=== PATIENT | female | born 1990 | race Caucasian/White ===

== ENCOUNTER 2018-03-28 06:18 | Inpatient (IN) ==
[2018-03-28] MEDS ORDERED: ONDANSETRON 4 MG/2 ML VIAL IV PRN ×2 (07:35→16:30)
[2018-03-28] MEDS ORDERED: BUTORPHANOL 2 MG/ML VIAL IV PRN (07:35)
[2018-03-28] MEDS ORDERED: MEPERIDINE 50 MG/1 ML VIAL IV PRN (07:35)
[2018-03-28] MEDS ORDERED: BUTORPHANOL 1 MG/ML VIAL IV PRN (07:35)
[2018-03-28] MEDS ORDERED: OXYTOCIN/LR 20 UNIT/1,000 ML BAG IV SCH (08:00)
[2018-03-28] MEDS ORDERED: LACTATED RINGERS 1,000 ML IV SCH (08:00)
[2018-03-28 08:11] LABS: Basophils % 0.3 % (0.0-0.8); Eosinophils # 0.1 10*3/uL (0.0-0.87); Eosinophils % 1.1 % (0.00-10.9); Hematocrit 34.3 VOL% (35.7-47.0); Hemoglobin 11.3 GM/DL (12.0-16.0); Immature Granulocytes % 0.8 %; Lymphocytes # 1.9 10*3/uL (1.4-4.0); Lymphocytes % 15.1 % (21.3-54.2); Mean Corpuscular HGB Conc 32.9 GM/DL (32-36); Mean Corpuscular Hemoglobin 30 PG (27-34); Mean Corpuscular Volume 90.3 FL (87-102); Mean Platelet Volume 11.5 FL (9.6-12.0); Monocytes # 1.3 10*3/uL (0.11-0.8); Monocytes % 10.1 % (1.7-12.7); Neutrophils % 72.6 % (38.7-73.9); Platelet Count 327 T/CUMM (130-400); Red Cell Distribution Width 14.5 % (9.3-17.3); White Blood Count 12.4 T/CUMM (4-12)
[2018-03-28 08:20] LABS: INR 0.9; PT Patient Result 9.9 SECS; Partial Thromboplastin Time 27.8 SECS (0-40)
[2018-03-28 08:40] LABS: Alanine Aminotransferase 21 U/L (13-56); Albumin 2.5 G/DL (3.4-5.0); Alkaline Phosphatase 132 U/L (45-117); Aspartate Amino Transferase 16 U/L (0-37); Bilirubin,Total < 0.39 MG/DL (0.2-1.0); Blood Urea Nitrogen 8 MG/DL (7-18); Calcium 9.2 MG/DL (8.5-10.1); Glucose 95 MG/DL (74-106); Osmolality,Calculated 276.4 MOS/KG (273-304); Potassium 3.6 MMOL/L (3.5-5.1); Sodium 140 MMOL/L (136-145); Total Protein 6.4 G/DL (6.4-8.3)
[2018-03-28] MEDS ORDERED: PROMETHAZINE 25 MG/1 ML VIAL IM ONE (12:11)
[2018-03-28] MEDS ORDERED: ONDANSETRON 4 MG/2 ML VIAL IV ONE (12:11)
[2018-03-28] MEDS ORDERED: LACTATED RINGERS 1,000 ML IV ONE (12:11)
[2018-03-28] MEDS ORDERED: ePHEDrine 50 MG/ML AMP IV PRN (12:11)
[2018-03-28] MEDS ORDERED: diphenhydrAMINE 50 MG/1 ML VIAL IV PRN ×2 (12:11)
[2018-03-28] MEDS ORDERED: hydrOXYzine HCL 25 MG/1 ML VIAL IM PRN (12:11)
[2018-03-28] MEDS ORDERED: FAMOTIDINE 20 MG/2 ML VIAL IV ONE (12:11)
[2018-03-28] MEDS ORDERED: CITRIC ACID/SODIUM CITRATE 30 ML UDCUP PO ONE (12:11)
[2018-03-28] MEDS ORDERED: fentaNYL 2 MCG/ROPIV 0.2% EPID 150 ML EPIDURAL SCH (12:30)
[2018-03-28] MEDS ORDERED: fentaNYL 100 MCG/2 ML VIAL ONE (13:58)
[2018-03-28] MEDS ORDERED: LIDOCAINE 1% 50 ML VIAL ONE (13:58)
[2018-03-28] MEDS ORDERED: miSOPROStol 200 MCG TABLET ONE (13:58)
[2018-03-28] MEDS ORDERED: BISACODYL 10 MG SUPP RECTAL PRN (16:30)
[2018-03-28] MEDS ORDERED: LANOLIN 50% CREAM 0.3 OZ TUBE TOP PRN (16:30)
[2018-03-28] MEDS ORDERED: ACETAMINOPHEN 325 MG TABLET PO PRN (16:30)
[2018-03-28] MEDS ORDERED: OXYTOCIN/LR 20 UNIT/1,000 ML BAG IV ONE (16:30)
[2018-03-28] MEDS ORDERED: DIPH/TET/ACEL PERT BOOSTER VACCINE 0.5 ML VIAL IM ONE (16:30)
[2018-03-28] MEDS ORDERED: RHO(D) IMMUNE GLOBULIN 300 MCG SYRINGE IM ONE (16:30)
[2018-03-28] MEDS ORDERED: WITCH HAZEL PADS 100/JAR TOP PRN (16:30)
[2018-03-28] MEDS ORDERED: HYDROCORTISONE 2.5% RECTAL CREAM 30 GM TUBE TOP PRN (16:30)
[2018-03-28] MEDS ORDERED: BENZOCAINE 20%/MENTHOL 0.5% SPRAY 56 GM CAN TOP PRN (16:30)
[2018-03-28] MEDS ORDERED: oxyCODONE/ACETAMINOPHEN 5-325 MG TABLET PO PRN ×2 (16:30)
[2018-03-28] MEDS ORDERED: MEASLES/MUMPS/RUBELLA VACCINE 0.5 ML VIAL SUBCUT ONE (16:30)
[2018-03-28] MEDS: DOCUSATE SODIUM 100 MG CAPSULE PO SCH (20:40)
[2018-03-28] MEDS: IBUPROFEN 800 MG TABLET PO PRN (20:40)
[2018-03-29 04:13] LABS: Basophils # 0.1 10*3/uL (0.0-0.2); Basophils % 0.2 % (0.0-0.8); Eosinophils % 0.2 % (0.00-10.9); Hematocrit 28.2 VOL% (35.7-47.0); Hemoglobin 9.6 GM/DL (12.0-16.0); Immature Granulocytes % 0.5 %; Immature Granulocytes Absolute 0.11 #; Lymphocytes # 2.3 10*3/uL (1.4-4.0); Lymphocytes % 11.1 % (21.3-54.2); Mean Corpuscular Hemoglobin 30 PG (27-34); Mean Corpuscular Volume 87.9 FL (87-102); Mean Platelet Volume 12.2 FL (9.6-12.0); Monocytes # 1.7 10*3/uL (0.11-0.8); Neutrophils # 16.9 10*3/uL (1.4-7.4); Platelet Count 275 T/CUMM (130-400); Red Blood Count 3.21 MC/CUMM (3.8-5.5); Red Cell Distribution Width 14.6 % (9.3-17.3); White Blood Count 21.1 T/CUMM (4-12)
[2018-03-29 04:44] LABS: Band Neutrophils 4 % (0-10); Lymphocytes 12 % (20-55); Segmented Neutrophils 79 % (50-85); Total Cells Counted 100
[2018-03-29 04:45] LABS: Anisocytosis 1+; Platelet Estimate Normal
[2018-03-29] MEDS: DOCUSATE SODIUM 100 MG CAPSULE PO SCH ×2 (08:35→21:31)
[2018-03-29] MEDS ORDERED: FERROUS SULFATE 325 MG TABLET PO SCH (09:00)
[2018-03-29] MEDS ORDERED: MULTIVITAMIN (PRENATAL) TABLET PO SCH (09:00)
[2018-03-29] MEDS: IBUPROFEN 800 MG TABLET PO PRN (17:25)
[2018-03-30 07:15] VITALS: BP 113/70
== END 2018-03-30 13:40 | disposition home or self-care (01) | DRG 560 ==
LOC: N.LDOUT 06:18 → N.LD 06:20 → N.OB 17:24
PROVIDERS: ADMIT Obstetrics & Gynecology; ATTEND Obstetrics & Gynecology

== ENCOUNTER 2018-04-01 10:47 | Inpatient (IN) ==
[2018-04-01] MEDS ORDERED: FUROSEMIDE 100 MG/10 ML VIAL IV STA (11:35)
[2018-04-01] MEDS ORDERED: LABETALOL 20 MG/4 ML SYRINGE IV STA ×2 (11:35→15:00)
[2018-04-01] MEDS ORDERED: MAGNESIUM SULF RIDER 2 GM in PREMIX 1 EACH IV ONE (11:37)
[2018-04-01 11:41] LABS: Basophils # 0.1 10*3/uL (0.0-0.2); Basophils % 0.3 % (0.0-0.8); Eosinophils # 0.3 10*3/uL (0.0-0.87); Hematocrit 30.7 VOL% (35.7-47.0); Hemoglobin 10.2 GM/DL (12.0-16.0); Immature Granulocytes % 0.8 %; Immature Granulocytes Absolute 0.12 #; Lymphocytes # 2.3 10*3/uL (1.4-4.0); Lymphocytes % 14.7 % (21.3-54.2); Mean Corpuscular HGB Conc 33.2 GM/DL (32-36); Mean Corpuscular Hemoglobin 31 PG (27-34); Mean Corpuscular Volume 92.2 FL (87-102); Mean Platelet Volume 11.6 FL (9.6-12.0); Monocytes # 0.8 10*3/uL (0.11-0.8); Neutrophils # 12.1 10*3/uL (1.4-7.4); Neutrophils % 77.2 % (38.7-73.9); Platelet Count 406 T/CUMM (130-400); Red Blood Count 3.33 MC/CUMM (3.8-5.5); Red Cell Distribution Width 15.1 % (9.3-17.3); White Blood Count 15.6 T/CUMM (4-12)
[2018-04-01 11:54] LABS: Alanine Aminotransferase 41 U/L (13-56); Albumin 2.6 G/DL (3.4-5.0); Alkaline Phosphatase 131 U/L (45-117); Aspartate Amino Transferase 37 U/L (0-37); Blood Urea Nitrogen 9 MG/DL (7-18); Calcium 8.1 MG/DL (8.5-10.1); Glucose 77 MG/DL (74-106); Potassium 3.6 MMOL/L (3.5-5.1); Sodium 143 MMOL/L (136-145); Troponin I Only < 0.015 NG/ML (0.00-0.045)
[2018-04-01] MEDS ORDERED: LABETALOL 100 MG/20 ML VIAL IV ONE (11:55)
[2018-04-01] MEDS ORDERED: ACETAMINOPHEN 325 MG TABLET PO PRN (15:07)
[2018-04-01] MEDS ORDERED: ONDANSETRON 4 MG/2 ML VIAL IV PRN (15:07)
[2018-04-01] MEDS ORDERED: BISACODYL 10 MG SUPP RECTAL PRN (15:07)
[2018-04-01] MEDS ORDERED: IBUPROFEN 800 MG TABLET PO PRN (15:07)
[2018-04-01] MEDS ORDERED: MAGNESIUM HYDROXIDE SUSP 30 ML UDCUP PO PRN (15:07)
[2018-04-01] MEDS ORDERED: oxyCODONE/ACETAMINOPHEN 5-325 MG TABLET PO PRN (15:12)
[2018-04-01] MEDS ORDERED: LACTATED RINGERS 1,000 ML IV SCH (15:30)
[2018-04-01] MEDS: FUROSEMIDE 40 MG/4 ML VIAL IV SCH (17:36)
[2018-04-01 18:07] LABS: Apearance,Urine CLEAR (Clear); Bilirubin,Urine Negative (Negative); Blood, Urine Large mg/dL (Negative); Glucose,Urine (UA) Negative (Negative); Ketones,Urine 20 mg/dL (Negative); Nitrite,Urine Negative (Negative); Protein,Urine Negative; RBC,Urine 19 /HPF (0-4); Squamous Epithelial Cell,Urine Occasional /HPF (0-10); Urine Color Straw (Yellow); Urine Specific Gravity 1.006 (1.001-1.035); Urine Urobilinogen < 2.0 EU/DL (0.2-1.0); WBC,Urine 27 /HPF (0-6)
[2018-04-01] MEDS: LABETALOL 200 MG TABLET PO SCH (21:10)
[2018-04-01] MEDS: DOCUSATE SODIUM 100 MG CAPSULE PO SCH (21:10)
[2018-04-02 03:13] LABS: Basophils # 0.1 10*3/uL (0.0-0.2); Basophils % 0.4 % (0.0-0.8); Eosinophils # 0.3 10*3/uL (0.0-0.87); Eosinophils % 1.9 % (0.00-10.9); Hematocrit 29.9 VOL% (35.7-47.0); Hemoglobin 10.2 GM/DL (12.0-16.0); Immature Granulocytes % 1.1 %; Immature Granulocytes Absolute 0.16 #; Lymphocytes # 2.4 10*3/uL (1.4-4.0); Lymphocytes % 17.3 % (21.3-54.2); Mean Corpuscular HGB Conc 34.1 GM/DL (32-36); Mean Corpuscular Hemoglobin 30 PG (27-34); Mean Corpuscular Volume 87.4 FL (87-102); Mean Platelet Volume 11.2 FL (9.6-12.0); Monocytes # 1.1 10*3/uL (0.11-0.8); Monocytes % 7.7 % (1.7-12.7); NRBC # 0.02 10*3/uL; Neutrophils % 71.6 % (38.7-73.9); Platelet Count 451 T/CUMM (130-400); Red Blood Count 3.42 MC/CUMM (3.8-5.5); Red Cell Distribution Width 15.4 % (9.3-17.3)
[2018-04-02 03:28] LABS: Albumin 2.3 G/DL (3.4-5.0); Bilirubin,Total 0.6 MG/DL (0.2-1.0); Calcium 7.8 MG/DL (8.5-10.1); Osmolality,Calculated 282.1 MOS/KG (273-304); Total Protein 6.6 G/DL (6.4-8.3)
[2018-04-02] MEDS: POTASSIUM CHLORIDE 20 MEQ TABLET PO PRN ×2 (05:17→07:06)
[2018-04-02] MEDS ORDERED: POTASSIUM CHLORIDE 20 MEQ TABLET PO ONE (08:15)
[2018-04-02] MEDS ORDERED: cefTRIAXone 1,000 MG in SYRINGE 1 EACH IV SCH (08:30)
[2018-04-02] MEDS: FUROSEMIDE 40 MG/4 ML VIAL IV SCH ×2 (09:06→15:12)
[2018-04-02] MEDS: LABETALOL 200 MG TABLET PO SCH (09:07)
[2018-04-02] MEDS: DOCUSATE SODIUM 100 MG CAPSULE PO SCH (09:07)
[2018-04-02] MEDS ORDERED: ENOXAPARIN 80 MG/0.8 ML SYRINGE SUBCUT SCH (11:00)
[2018-04-02] MEDS ORDERED: SPIRONOLACTONE 25 MG TABLET PO SCH (14:00)
[2018-04-02 16:06] VITALS: BP 137/85
== END 2018-04-02 16:50 | disposition home or self-care (01) | DRG 561 ==
LOC: EDBD → EDUNIT# → N.ED 10:47 → N.EDINP 15:07 → N.TELES 15:48
PROVIDERS: ADMIT Obstetrics & Gynecology; ATTEND Obstetrics & Gynecology

== ENCOUNTER 2021-06-17 06:47 | Inpatient (IN) ==
[2021-06-17] MEDS ORDERED: ONDANSETRON 4 MG/2 ML VIAL IV PRN ×2 (07:24→23:54)
[2021-06-17] MEDS ORDERED: OXYTOCIN/LR 20 UNIT/1,000 ML BAG IV SCH (07:30)
[2021-06-17 07:56] LABS: Basophils # 0.1 10*3/uL (0.0-0.2); Basophils % 0.5 % (0.0-0.8); Eosinophils # 0.1 10*3/uL (0.0-0.87); Eosinophils % 1.3 % (0.00-10.9); Hematocrit 36.7 VOL% (35.7-47.0); Hemoglobin 12.1 GM/DL (12.0-16.0); Immature Granulocytes % 0.8 %; Immature Granulocytes Absolute 0.09 #; Lymphocytes # 1.7 10*3/uL (1.4-4.0); Lymphocytes % 15.5 % (21.3-54.2); Mean Corpuscular Volume 89.7 FL (87-102); Mean Platelet Volume 11.1 FL (9.6-12.0); Monocytes % 8.6 % (1.7-12.7); Neutrophils % 73.3 % (38.7-73.9); Platelet Count 293 T/CUMM (130-400); Red Blood Count 4.09 MC/CUMM (3.8-5.5); Red Cell Distribution Width 17.3 % (9.3-17.3); White Blood Count 11.1 T/CUMM (4-12)
[2021-06-17] MEDS: LACTATED RINGERS 1,000 ML IV SCH ×3 (07:56→19:04)
[2021-06-17] MEDS ORDERED: FAMOTIDINE 20 MG/2 ML VIAL IV ONE (18:43)
[2021-06-17] MEDS ORDERED: CITRIC ACID/SODIUM CITRATE 30 ML UDCUP PO ONE (18:43)
[2021-06-17] MEDS ORDERED: LACTATED RINGERS 1,000 ML IV ONE (18:43)
[2021-06-17] MEDS ORDERED: diphenhydrAMINE 50 MG/1 ML VIAL IV PRN ×2 (18:43)
[2021-06-17] MEDS ORDERED: ePHEDrine 50 MG/ML VIAL IV PRN (18:43)
[2021-06-17] MEDS ORDERED: NALOXONE 0.4 MG/ML VIAL IV PRN (18:43)
[2021-06-17] MEDS ORDERED: LACTATED RINGERS 1,000 ML IV SCH (19:00)
[2021-06-17] MEDS ORDERED: fentaNYL 2 MCG/ROPIV 0.2% EPID 100 ML EPIDURAL SCH (19:00)
[2021-06-17 20:44] LABS: Bilirubin,Urine Negative (Negative); Blood, Urine Negative (Negative); Glucose,Urine (UA) Negative (Negative); Ketones,Urine 80 mg/dL (Negative); Mucus,Urine Occasional /LPF (Occasional); Nitrite,Urine Negative (Negative); Protein,Urine Negative; RBC,Urine <1 /HPF (0-4); Urine Appearance CLEAR (Clear); Urine Color Yellow (Yellow); Urine Urobilinogen < 2.0 EU/DL (0.2-1.0)
[2021-06-17] MEDS ORDERED: miSOPROStoL 200 MCG TABLET ONE (22:46)
[2021-06-17] MEDS ORDERED: TRANEXAMIC ACID 1,000 MG/10 ML VIAL ONE (22:46)
[2021-06-17] MEDS ORDERED: OXYTOCIN/LR 20 UNIT/1,000 ML BAG IV ONE ×2 (22:46→23:54)
[2021-06-17] MEDS ORDERED: METHYLERGONOVINE 0.2 MG/1 ML AMP ONE (22:47)
[2021-06-17] MEDS ORDERED: CARBOPROST TROMETHAMINE 250 MCG/ML AMP IM ONE (22:47)
[2021-06-17] MEDS ORDERED: miSOPROStoL 200 MCG TABLET VAG ONE (23:30)
[2021-06-17 23:48] LABS: Cord Arterial Blood HCO3 18.7 MMOL/L
[2021-06-17 23:49] LABS: Cord Venous Blood HCO3 21.6 MMOL/L; Cord Venous Blood PO2 26.3 MMHG
[2021-06-17] MEDS ORDERED: MEASLES/MUMPS/RUBELLA VACCINE 0.5 ML VIAL SUBCUT ONE (23:54)
[2021-06-17] MEDS ORDERED: WITCH HAZEL PADS 100/JAR TOP PRN (23:54)
[2021-06-17] MEDS ORDERED: LANOLIN 50% CREAM 0.3 OZ TUBE TOP PRN (23:54)
[2021-06-17] MEDS ORDERED: DIPH/TET/ACEL PERT BOOSTER VACCINE 0.5 ML VIAL IM ONE (23:54)
[2021-06-17] MEDS ORDERED: BISACODYL 10 MG SUPP RECTAL PRN (23:54)
[2021-06-17] MEDS ORDERED: ACETAMINOPHEN 325 MG TABLET PO PRN (23:54)
[2021-06-17] MEDS ORDERED: oxyCODONE/ACETAMINOPHEN 5-325 MG TABLET PO PRN ×2 (23:54)
[2021-06-17] MEDS ORDERED: HYDROCORTISONE 2.5% RECTAL CREAM 30 GM TUBE TOP PRN (23:54)
[2021-06-17] MEDS ORDERED: RHO(D) IMMUNE GLOBULIN 300 MCG SYRINGE IM ONE (23:54)
[2021-06-17] MEDS ORDERED: BENZOCAINE 20%/MENTHOL 0.5% SPRAY 56 GM CAN TOP PRN (23:54)
[2021-06-18] MEDS: IBUPROFEN 800 MG TABLET PO PRN ×2 (02:40→14:56)
[2021-06-18] MEDS ORDERED: ACETAMINOPHEN 500 MG TABLET PO ONE (03:38)
[2021-06-18 05:49] LABS: Basophils # 0.1 10*3/uL (0.0-0.2); Basophils % 0.3 % (0.0-0.8); Eosinophils % 0.1 % (0.00-10.9); Hematocrit 32.4 VOL% (35.7-47.0); Hemoglobin 10.7 GM/DL (12.0-16.0); Immature Granulocytes % 0.6 %; Lymphocytes # 1.7 10*3/uL (1.4-4.0); Lymphocytes % 9.7 % (21.3-54.2); Mean Platelet Volume 11.9 FL (9.6-12.0); Monocytes % 8.9 % (1.7-12.7); Neutrophils % 80.4 % (38.7-73.9); Platelet Count 265 T/CUMM (130-400); Red Blood Count 3.64 MC/CUMM (3.8-5.5); Red Cell Distribution Width 17.3 % (9.3-17.3); White Blood Count 17.1 T/CUMM (4-12)
[2021-06-18] MEDS: DOCUSATE SODIUM 100 MG CAPSULE PO SCH ×2 (08:57→21:15)
[2021-06-19] MEDS: IBUPROFEN 800 MG TABLET PO PRN (03:16)
[2021-06-19 08:00] VITALS: BP 121/68
[2021-06-19] MEDS: DOCUSATE SODIUM 100 MG CAPSULE PO SCH (08:40)
[2021-06-19] MEDS ORDERED: SERTRALINE 50 MG TABLET PO SCH (12:00)
== END 2021-06-19 13:57 | disposition home or self-care (01) | DRG 807 ==
LOC: N.LD 06:47 → N.OB 06-18 02:50
PROVIDERS: ADMIT Obstetrics & Gynecology; ATTEND Obstetrics & Gynecology